=== PATIENT | female | born 1945 | race Two or more races ===

== ENCOUNTER 2016-05-18 08:30 | Inpatient (IN) | payer OTHER ==
[~2016-05-18] VITALS: Ht 162.6 cm; Wt 104.3 kg
[2016-05-27 10:24] LABS: CALCIUM 9.4 mg/dL (8.5-10.1); CHLORIDE SERUM 102 mmol/L (98-107); CREATININE SERUM 0.8 mg/dL (0.6-1.0); GFR1 > 60 mL/min; GLUCOSE SERUM 98 mg/dL (74-106); SODIUM SERUM 140 mmol/L (136-145)
[2016-05-27 10:45] LABS: BASOPHIL % 0.2 % (0-2); PLATELET COUNT 230 x10^3mcL (130-400); RED CELL DISTRIBUTION WIDTH 14.1 % (11.5-14.5)
[2016-05-27 10:54] LABS: microscopic required? YES; urine erythrocyte NEGATIVE (NEGATIVE)
[2016-06-03 06:24] VITALS: BP 128/72
[2016-06-03] MEDS ORDERED: HCTZ/LISINOPRIL1 TA2 PO (14:45)
[2016-06-03 15:39] VITALS: BP 123/62
[2016-06-03 17:05] VITALS: BP 144/69
[2016-06-03 18:27] LABS: BASOPHIL % 0.1 % (0-2); PLATELET COUNT 211 x10^3mcL (130-400); RED CELL DISTRIBUTION WIDTH 14.2 % (11.5-14.5)
[2016-06-03 18:44] LABS: CALCIUM 8.2 mg/dL (8.5-10.1); CARBON DIOXIDE 28.8 mmol/L (21-32); CHOLESTEROL/HDL RATIO 3.4; MAGNESIUM 1.4 mg/dL (1.8-2.4); PHOSPHOROUS 3.5 mg/dL (2.5-4.9); POTASSIUM SERUM 3.7 mmol/L (3.5-5.1)
[2016-06-03 18:48] LABS: T3 TOTAL 0.79 ng/mL
[2016-06-03 19:08] LABS: FREE T4 1.33 ng/dL (0.76-1.46); FREE THYROXINE INDEX 3.5 ug/dL (1.4-4.5); T4(THYROXINE) 9.4 ug/dL (4.7-13.3)
[2016-06-03 22:04] VITALS: BP 122/53
[2016-06-04 06:24] VITALS: BP 109/48
[2016-06-04 10:03] VITALS: BP 137/59
[2016-06-04 14:27] VITALS: BP 122/56
[2016-06-04 17:43] VITALS: BP 112/52
[2016-06-04 22:29] VITALS: BP 151/69
[2016-06-05] VITALS (8 sets, daily range): BP systolic 106–146; BP diastolic 51–65; Ht 162.6 cm; Wt 104.3 kg
[2016-06-05 06:58] LABS: BASOPHIL % 0.3 % (0-2); PLATELET COUNT 168 x10^3mcL (130-400); RED CELL DISTRIBUTION WIDTH 14.2 % (11.5-14.5)
[2016-06-05 07:19] LABS: CALCIUM 8.1 mg/dL (8.5-10.1); CARBON DIOXIDE 30.3 mmol/L (21-32); CHLORIDE SERUM 103 mmol/L (98-107); CREATININE SERUM 0.8 mg/dL (0.6-1.0); GFR1 > 60 mL/min; GLUCOSE SERUM 118 mg/dL (74-106); POTASSIUM SERUM 3.5 mmol/L (3.5-5.1); SODIUM SERUM 137 mmol/L (136-145)
[2016-06-06 06:35] LABS: BASOPHIL % 0.4 % (0-2); PLATELET COUNT 178 x10^3mcL (130-400); RED CELL DISTRIBUTION WIDTH 13.8 % (11.5-14.5)
[2016-06-06 06:48] LABS: ALKALINE PHOSPHATASE 64 U/L (46-116); ALT/SGPT 10 U/L (14-59); AST/SGOT 11 U/L (15-37); BILIRUBIN TOTAL 0.6 mg/dL (0.20-1.00); CALCIUM 8.1 mg/dL (8.5-10.1); CARBON DIOXIDE 29.8 mmol/L (21-32); CHLORIDE SERUM 101 mmol/L (98-107); CREATININE SERUM 0.9 mg/dL (0.6-1.0); GFR1 > 60 mL/min; GLUCOSE SERUM 106 mg/dL (74-106); POTASSIUM SERUM 3.3 mmol/L (3.5-5.1); SODIUM SERUM 137 mmol/L (136-145)
[2016-06-06 06:51] LABS: ALBUMIN 2.2 g/dL (3.4-5.0)
[2016-06-06 06:57] VITALS: BP 124/52
[2016-06-06 08:52] VITALS: BP 115/54
[2016-06-06 18:00] VITALS: BP 114/53
[2016-06-06 21:47] VITALS: BP 104/59
[2016-06-07 06:12] VITALS: BP 115/63
[2016-06-07 06:27] LABS: CALCIUM 8.3 mg/dL (8.5-10.1); CARBON DIOXIDE 32.6 mmol/L (21-32); CHLORIDE SERUM 103 mmol/L (98-107); CREATININE SERUM 0.9 mg/dL (0.6-1.0); GFR1 > 60 mL/min; GLUCOSE SERUM 106 mg/dL (74-106); POTASSIUM SERUM 4.1 mmol/L (3.5-5.1); SODIUM SERUM 138 mmol/L (136-145)
[2016-06-07 07:25] LABS: BASOPHIL % 0.2 % (0-2); PLATELET COUNT 218 x10^3mcL (130-400)
[2016-06-07 09:07] VITALS: BP 149/56
[2016-06-07] MEDS ORDERED: FERG PO (11:39)
[2016-06-07] MEDS ORDERED: HYDROMORPHO1 MG/1 M1 IV (11:43)
[2016-06-07] MEDS ORDERED: NOR10T PO (11:43)
[2016-06-07] MEDS ORDERED: ZOFI IV (11:43)
[2016-06-07] MEDS ORDERED: MIRUD PO (11:43)
[2016-06-07] MEDS ORDERED: VITC PO (11:44)
[2016-06-07] MEDS ORDERED: MAG PO (11:44)
[2016-06-07] MEDS ORDERED: KETOROLAC30 MG/ML IV (12:00)
[2016-06-07] MEDS ORDERED: ARTOS OU (12:00)
[2016-06-07] MEDS ORDERED: IPRATROPIUM BROM3 M2 HHN (14:00)
[2016-06-07] MEDS ORDERED: LOV30I SC (14:00)
[2016-06-07] MEDS ORDERED: TYL325 PO (14:01)
[2016-06-07 14:43] VITALS: BP 149/56
== END 2016-06-07 16:57 | DRG 469 ==
LOC: MU 08:30 → DU 06-03 06:08 → MU 06-03 07:30 → DU 06-04 07:52 → MU 06-05 13:56
PROVIDERS: Family Medicine; Neuromusculoskeletal Medicine, Sports Medicine; ADMIT Family Medicine
PROC: 0SBC0ZZ Excision of Right Knee Joint, Open Approach (ICD-10-PCS; 2016-06-03)
PROC: 0SRC0J9 Replacement of Right Knee Joint with Synthetic Substitute, Cemented, Open Approach (ICD-10-PCS; principal; 2016-06-03 07:30)
DX: M17.11 Unilateral primary osteoarthritis, right knee (principal); N17.0 Acute kidney failure with tubular necrosis; E43 Unspecified severe protein-calorie malnutrition; I10 Essential (primary) hypertension; M65.861 Other synovitis and tenosynovitis, right lower leg; D72.829 Elevated white blood cell count, unspecified; E87.6 Hypokalemia; D64.9 Anemia, unspecified; E83.42 Hypomagnesemia; E66.9 Obesity, unspecified; Z68.39 Body mass index [BMI] 39.0-39.9, adult
CPT/HCPCS: 84439; 97110-GP; 97116-GP; 97139; 97530-GP; C1713; C1776; J0690; J1170; J1650; J1885; J1940; J2250; J2270; J2405; J2704; J3010; J3475; J7030; J7120; Q0092

== ENCOUNTER 2017-02-13 06:44 | Inpatient (IN) | payer OTHER ==
[2017-02-06 10:55] LABS: microscopic required? NO
[2017-02-06 11:02] LABS: BASOPHIL % 0.3 % (0-2); PLATELET COUNT 252 x10^3mcL (130-400)
[2017-02-06 11:09] LABS: CALCIUM 9.4 mg/dL (8.5-10.1); CARBON DIOXIDE 30.2 mmol/L (21-32); CHLORIDE SERUM 101 mmol/L (98-107); CREATININE SERUM 0.9 mg/dL (0.6-1.0); GFR1 > 60 mL/min; GLUCOSE SERUM 91 mg/dL (74-106); POTASSIUM SERUM 3.8 mmol/L (3.5-5.1); RED CELL DISTRIBUTION WIDTH 14.7 % (11.5-14.5); SODIUM SERUM 139 mmol/L (136-145)
[2017-02-06 11:41] LABS: UA SPECIFIC GRAVITY 1.015 (1.005-1.035); urine erythrocyte NEGATIVE (NEGATIVE)
[~2017-02-13] VITALS: Ht 162.6 cm; Wt 108.9 kg
[~2017-02-13 06:44] MED LIST: ARTOS OU; FERG PO; HCTZ/LISINOPRIL1 TA2 PO; HYDROMORPHO1 MG/1 M1 IV; IPRATROPIUM BROM3 M2 HHN; KETOROLAC30 MG/ML IV; LOV30I SC; MAG PO; MIRUD PO; NOR10T PO; TYL325 PO; VITC PO; ZOFI IV
[2017-02-13 07:07] VITALS: BP 117/45
[2017-02-13] MEDS ORDERED: LASIX20 MG PO ×2 (12:51→13:51)
[2017-02-13 13:10] VITALS: BP 114/57
[2017-02-13] MEDS ORDERED: GOOD SENSE ASPI81 M3 PO (13:54)
[2017-02-13 17:19] VITALS: BP 104/46
[2017-02-13 18:04] LABS: PLATELET COUNT 203 x10^3mcL (130-400)
[2017-02-13 18:13] LABS: AMYLASE 64 U/L (25-115); CALCIUM 8.9 mg/dL (8.5-10.1); CARBON DIOXIDE 29.5 mmol/L (21-32); CHLORIDE SERUM 103 mmol/L (98-107); CHOLESTEROL 194 mg/dL (<200); CHOLESTEROL/HDL RATIO 4.1; CREATININE SERUM 0.9 mg/dL (0.6-1.0); GFR1 > 60 mL/min; GLUCOSE SERUM 122 mg/dL (74-106); HDL CHOLESTEROL 47 mg/dL (40-60); LIPASE 123 IU/L (73-393); MAGNESIUM 1.7 mg/dL (1.8-2.4); PHOSPHOROUS 3.6 mg/dL (2.5-4.9); POTASSIUM SERUM 3.6 mmol/L (3.5-5.1); SODIUM SERUM 140 mmol/L (136-145); TRIGLYCERIDES 128 mg/dL (<150)
[2017-02-13 18:23] LABS: BASOPHIL % 0 % (0-2); RED CELL DISTRIBUTION WIDTH 14.9 % (11.5-14.5)
[2017-02-13 18:25] LABS: FREE T4 1.18 ng/dL (0.76-1.46); FREE THYROXINE INDEX 3.4 ug/dL (1.4-4.5); T4(THYROXINE) 9.4 ug/dL (4.7-13.3)
[2017-02-13 18:30] LABS: T3 TOTAL 0.94 ng/mL
[2017-02-13 20:44] VITALS: BP 97/36
[2017-02-13 21:50] VITALS: BP 104/40
[2017-02-13 22:32] VITALS: BP 124/52
[2017-02-13 23:40] LABS: UA SPECIFIC GRAVITY 1.025 (1.005-1.035); microscopic required? YES; urine erythrocyte 2+ (NEGATIVE)
[2017-02-14 00:09] LABS: AMPHETAMINE QUAL UR NONE DETECTED (NEG <=1000)
[2017-02-14 05:06] VITALS: BP 118/44
[2017-02-14 06:25] LABS: BASOPHIL % 0.3 % (0-2); PLATELET COUNT 184 x10^3mcL (130-400); RED CELL DISTRIBUTION WIDTH 14.4 % (11.5-14.5)
[2017-02-14 06:39] LABS: CALCIUM 8.5 mg/dL (8.5-10.1); CARBON DIOXIDE 26.5 mmol/L (21-32); CHLORIDE SERUM 103 mmol/L (98-107); CREATININE SERUM 0.8 mg/dL (0.6-1.0); GFR1 > 60 mL/min; GLUCOSE SERUM 107 mg/dL (74-106); MAGNESIUM 1.7 mg/dL (1.8-2.4); PHOSPHOROUS 3.5 mg/dL (2.5-4.9); POTASSIUM SERUM 3.7 mmol/L (3.5-5.1); SODIUM SERUM 137 mmol/L (136-145)
[2017-02-14 09:13] VITALS: BP 108/50
[2017-02-14 13:36] VITALS: BP 114/43
[2017-02-14 17:45] VITALS: BP 139/58
[2017-02-14 21:03] VITALS: BP 121/48
[2017-02-15 05:52] VITALS: BP 123/54
[2017-02-15 06:43] LABS: IRON 15 ug/dL (50-170); TOTAL IRON BINDING CAPACITY 216 ug/dL (250-450)
[2017-02-15 06:44] LABS: CALCIUM 8.4 mg/dL (8.5-10.1); CARBON DIOXIDE 28.9 mmol/L (21-32); CHLORIDE SERUM 106 mmol/L (98-107); CREATININE SERUM 0.9 mg/dL (0.6-1.0); GFR1 > 60 mL/min; GLUCOSE SERUM 99 mg/dL (74-106); MAGNESIUM 2.1 mg/dL (1.8-2.4); PHOSPHOROUS 3.1 mg/dL (2.5-4.9); POTASSIUM SERUM 3.9 mmol/L (3.5-5.1); SODIUM SERUM 140 mmol/L (136-145)
[2017-02-15 08:50] VITALS: BP 126/58
[2017-02-15 09:14] LABS: BASOPHIL % 0.3 % (0-2); PLATELET COUNT 168 x10^3mcL (130-400); RED CELL DISTRIBUTION WIDTH 14.7 % (11.5-14.5)
[2017-02-15 12:53] VITALS: BP 138/88
[2017-02-15 17:41] VITALS: BP 108/43
[2017-02-15 20:47] VITALS: BP 105/45
[2017-02-16 05:34] LABS: TRANSFERRIN 174 mg/dL (200-370)
[2017-02-16 06:18] LABS: BASOPHIL % 0.3 % (0-2); PLATELET COUNT 156 x10^3mcL (130-400)
[2017-02-16 06:25] VITALS: BP 112/54
[2017-02-16 06:28] LABS: RED CELL DISTRIBUTION WIDTH 14.7 % (11.5-14.5)
[2017-02-16 06:31] LABS: CALCIUM 8.3 mg/dL (8.5-10.1); CHLORIDE SERUM 108 mmol/L (98-107); CREATININE SERUM 0.8 mg/dL (0.6-1.0); GFR1 > 60 mL/min; GLUCOSE SERUM 96 mg/dL (74-106); PHOSPHOROUS 3.2 mg/dL (2.5-4.9); POTASSIUM SERUM 4.1 mmol/L (3.5-5.1); SODIUM SERUM 140 mmol/L (136-145)
[2017-02-16 09:38] VITALS: BP 145/63
[2017-02-16 13:35] VITALS: BP 136/52
[2017-02-16 17:52] VITALS: BP 124/52
[2017-02-16 21:11] VITALS: BP 110/53
[2017-02-17 05:41] VITALS: BP 129/63
[2017-02-17 06:29] LABS: CALCIUM 8.6 mg/dL (8.5-10.1); CARBON DIOXIDE 26.7 mmol/L (21-32); CHLORIDE SERUM 107 mmol/L (98-107); CREATININE SERUM 0.7 mg/dL (0.6-1.0); GFR1 > 60 mL/min; GLUCOSE SERUM 98 mg/dL (74-106); MAGNESIUM 1.9 mg/dL (1.8-2.4); PHOSPHOROUS 3.4 mg/dL (2.5-4.9); POTASSIUM SERUM 3.8 mmol/L (3.5-5.1); SODIUM SERUM 141 mmol/L (136-145)
[2017-02-17 06:46] LABS: BASOPHIL % 0.4 % (0-2); PLATELET COUNT 194 x10^3mcL (130-400); RED CELL DISTRIBUTION WIDTH 14.3 % (11.5-14.5)
[2017-02-17 08:56] VITALS: BP 125/52
[2017-02-17 13:59] VITALS: BP 118/61
[2017-02-17] MEDS ORDERED: KEFLEX500 M1 PO (14:21)
[2017-02-17] MEDS ORDERED: LAC PO (14:51)
[2017-02-17 17:28] VITALS: BP 148/72
== END 2017-02-17 19:03 | DRG 469 ==
LOC: DU 06:44 → MU 07:30 → DU 12:45
PROVIDERS: Neuromusculoskeletal Medicine, Sports Medicine; ADMIT Family Medicine
PROC: 0SRD0J9 Replacement of Left Knee Joint with Synthetic Substitute, Cemented, Open Approach (ICD-10-PCS; principal; 2017-02-13 07:30)
DX: M17.12 Unilateral primary osteoarthritis, left knee (principal); N17.0 Acute kidney failure with tubular necrosis; Z68.41 Body mass index [BMI] 40.0-44.9, adult; D68.69 Other thrombophilia; E83.42 Hypomagnesemia; N28.89 Other specified disorders of kidney and ureter; N20.0 Calculus of kidney; R31.9 Hematuria, unspecified; R80.9 Proteinuria, unspecified; R73.03 Prediabetes; I10 Essential (primary) hypertension; D64.9 Anemia, unspecified; E78.5 Hyperlipidemia, unspecified; E66.01 Morbid (severe) obesity due to excess calories; F17.210 Nicotine dependence, cigarettes, uncomplicated; Z96.651 Presence of right artificial knee joint
CPT/HCPCS: 82962; 83880; 84439; 94150; 97110-GP; 97116-GP; 97139; 97530-GP; C1713; C1776; J0690; J0696; J1650; J1885; J2250; J2704; J2916; J3010; J3475; J7030; J7120; Q0092